=== PATIENT | female | born 1980 | race Caucasian/White ===

== ENCOUNTER 2020-08-26 08:37 | Outpatient (CLI) | payer OTHER, SELFPAY ==
--- NOTE | ~2020-08-26 | US_ITS ---
EXAMINATION: US pelvic complete w TV EXAM DATE: 08/26/2020 10:17 INDICATION: Abnormal uterine bleeding. IUD, pelvic pain. TECHNIQUE: Pelvic transabdominal and transvaginal sonogram was performed. There are multiple graysca le and Doppler images available for interpretation. Comparison is made to prior examination from 07/31. FINDINGS: Uterus measures 7.1 x 3.7 x 3.3 cm, anteverted with IUD centrally located inside the endom etrial cavity. Endometrial stripe measures 7 mm, within normal limits. There is no free pelvic flui d. Right adnexa: The ovary measures 1.8 x 1.5 x 1.5 cm and is morphologically normal. Ovarian vascular f low confirmed. Left adnexa: The ovary measures 1.5 x 1.9 x 1.6 cm and is morphologically normal. Ovarian vascular fl ow confirmed. IMPRESSION: 1. IUD in expected position. Reviewed, dictated and finalized at location B. SEALING FUEL TANK REPAIRER
--- NOTE | ~2020-08-26 | MMUS_ITS ---
EXAMINATION: MM diagnostic nakul BI w cresencio, US breast RT limited HISTORY: Bilateral milky nipple discharge TECHNIQUE: Craniocaudal, mediolateral, and mediolateral oblique 3-D tomosynthesis images of the breas ts were performed and synthetic 2-D images were generated. CAD analysis was submitted and interpreted . High resolution limited right breast ultrasound was performed. COMPARISON: None, baseline BREAST PARENCHYMAL COMPOSITION: The breasts are heterogeneously dense, which may obscure small masses . FINDINGS: MAMMOGRAPHIC FINDINGS: There is no evidence of suspicious mass, calcification, or architectural distortion in either breast to suggest malignancy. No mammographic correlate is identified for the patient's bilateral nipple di scharge. An asymmetry is present in the middle third of the outer breast 9 cm from the nipple on the craniocaudal view. ULTRASOUND: There is no evidence of focal abnormal solid or cystic lesion in the vicinity of the mammographic fin ding in question. IMPRESSION: 1. No specific mammographic correlate is identified for the patient's nipple discharge. Further evalu ation at this time should be based on clinical assessment. Continued follow-up physical examination i s recommended. 2. Recommend 6 month follow-up right diagnostic mammogram and possible ultrasound for the asymmetry i n the outer right breast on the craniocaudal view. BI-RADS category 3, probably benign findings. Reviewed, dictated and finalized at location A. OMER COMPLAINT SERVICE SUPERVISOR IMPRESSION: 1. No specific mammographic correlate is identified for the patient's nipple di scharge. Further evaluation at this time should be based on clinical assessment . Continued follow-up physical examination is recommended. 2. Recommend 6 month follow-up right diagnostic mammogram and possible ultrasou nd for the asymmetry in the outer right breast on the craniocaudal view. BI-RADS category 3, probably benign findings.
== END 2020-08-26 08:38 | disposition home or self-care (01) ==
PROVIDERS: PCP Family Medicine; Visit Provider Nurse Practitioner
DX: N64.52 Nipple discharge (principal); R10.2 Pelvic and perineal pain; N93.8 Other specified abnormal uterine and vaginal bleeding; R92.8 Other abnormal and inconclusive findings on diagnostic imaging of breast; Z97.5 Presence of (intrauterine) contraceptive device
CPT/HCPCS: 76642; 76830; 76856; 77062; 77066; G0279

== ENCOUNTER 2021-04-25 11:27 | Outpatient (CLI) | payer OTHER, SELFPAY ==
--- NOTE | ~2021-04-25 | MMUS_ITS ---
EXAMINATION: MM diagnostic nakul RT w cresencio, US breast RT limited HISTORY: Six-month follow-up for outer right breast asymmetry on craniocaudal view of numerous 2020 TECHNIQUE: Full field ML, MLO and craniocaudal and spot craniocaudal 3-D tomosynthesis images of the right breast were performed and synthetic 2-D images were generated. Rolled medial and lateral cranio caudal views. CAD analysis was submitted and interpreted. High resolution right upper outer quadrant breast ultrasound was performed. COMPARISON: August 26, 2020 bilateral diagnostic mammogram BREAST PARENCHYMAL COMPOSITION: There are scattered areas of fibroglandular density. FINDINGS: MAMMOGRAPHIC FINDINGS: No reproducible mass, architectural distortion, malignant calcification, skin thickening or retractio n or significant new or developing density is detected. ULTRASOUND: No suspicious mass or shadowing, cyst or other significant finding is noted in the upper outer quadra nt of the right breast. IMPRESSION: 1. No mammographic evidence for malignancy 2. Routine mammographic screening is recommended. BI-RADS Category 1: Negative Reviewed, dictated and finalized at location A. IMPRESSION: 1. No mammographic evidence for malignancy 2. Routine mammographic screening is recommended. BI-RADS Category 1: Negative
== END 2021-04-25 11:28 | disposition home or self-care (01) ==
LOC: ANHIMG 11:29
PROVIDERS: PCP Family Medicine; Visit Provider Obstetrics & Gynecology Gynecology
DX: R92.8 Other abnormal and inconclusive findings on diagnostic imaging of breast (principal)
CPT/HCPCS: 76642; 77061; 77065; G0279

== ENCOUNTER 2022-05-11 15:10 | Outpatient (CLI) | payer OTHER, SELFPAY ==
--- NOTE | ~2022-05-11 | MM_ITS ---
EXAMINATION: MM screening nakul BI w cresencio HISTORY: Screening mammogram TECHNIQUE: Craniocaudal and mediolateral oblique 3-D tomosynthesis images were obtained and synthetic 2-D images were generated. CAD analysis was submitted and interpreted. COMPARISON: 04/25/2021 diagnostic right mammogram and limited right breast ultrasound 08/26/2020 bilateral diagnostic mammogram and limited right breast BREAST PARENCHYMAL COMPOSITION: There are scattered areas of fibroglandular density. FINDINGS: Approximately 4 x 5 x 5 x 7 mm low-density circumscribed opacity is noted in the posterior upper outer right breast (craniocaudal Tomosynthesis /; MLO Tomosynthesis image ). Similar m ass is noted retrospectively on 04/25/2021 mammogram; this is likely a benign intramammary lymph node .. There is no evidence of suspicious mass, calcification, or architectural distortion to suggest mal ignancy in either breast. There has been no suspicious interval change. IMPRESSION: 1. Benign findings; no mammographic evidence of malignancy 2. Recommend routine screening mammography in one year. BI-RADS Category 2: Benign finding(s). Reviewed, dictated and finalized at location A. SOFTWARE ENGINEER
== END 2022-05-11 15:11 | disposition home or self-care (01) ==
LOC: ANHIMG 15:11
PROVIDERS: PCP Family Medicine; Visit Provider Obstetrics & Gynecology Gynecology
DX: Z12.31 Encounter for screening mammogram for malignant neoplasm of breast (principal)
CPT/HCPCS: 77063; 77067

== ENCOUNTER 2025-04-16 14:58 | Outpatient (CLI) | payer OTHER, SELFPAY ==
--- NOTE | ~2025-04-16 | MM_ITS ---
EXAMINATION: MM screening [facility] BI w cresencio HISTORY: Screening TECHNIQUE: Craniocaudal and mediolateral oblique 3-D tomosynthesis images were obtained and synthetic 2-D images were generated. CAD analysis was submitted and interpreted. COMPARISON: 08/26/2020 BREAST PARENCHYMAL COMPOSITION: There are scattered areas of fibroglandular density. FINDINGS: There is no evidence of suspicious mass, calcification, or architectural distortion to suggest malignancy. Focal asymmetry in the upper- outer quadrant of the right breast, posterior depth. IMPRESSION: 1. Focal asymmetry in the upper-outer quadrant of the right breast, posterior depth. The study is incomplete. A diagnostic mammogram and a diagnostic ultrasound are recommended. BI-RADS 0: Incomplete-Need additional imaging evaluation. Reviewed, dictated and finalized at location Q. IMPRESSION: 1. Focal asymmetry in the upper-outer quadrant of the right breast, posterior d epth. The study is incomplete. A diagnostic mammogram and a diagnostic ultrasou nd are recommended. BI-RADS 0: Incomplete-Need additional imaging evaluation.
--- OUTSIDE RECORDS SUMMARY | 2025-04-16 15:01 | XMS_ITS | Clinical Summary ---
Author Organization [facility] Address [facility]ly [facility] [place] [address] Care Team Providers Care Asphalt Mixer Name Role Phone Unavailable Primary Care Provider Unavailabl e Social History Tobacco Use Types Packs/Day Years Used Date Smoking Tobacco: Never Assessed Comments Unknown Sex and Gender Information Value Date Recorded Sex Assigned at Not on file Legal Sex Female 8:33 PM CDT Gender Identity Not on file Sexual Orientation Not on file Plan of Treatment Health Maintenance Due Date Last Done Comments Cervical Cancer Screening Pa p Smear (Age 30 to 64) Every 3 Years 1981 Annual Physical 1984 Hepatitis C 11/29/1999 DTaP, Tdap and Td Vaccines ( 1 - Tdap) 2000 Hepatitis B Vaccines (1 of 3 - 19+ 3-dose series) 2000 HPV Vaccines (1 - 3-dose SCD M series) 2008 Cervical Cancer Screening Pa p with HPV Testing (Age 30 to 64) Every 5 Years 11/29/2011 Cervical Cancer Screening with HPV 11/29/2011 Mammogram Screening 2021 COVID-19 Vaccine (2023-2 5 season) 2025 Influenza Adult (#1) 2025 Meningococcal B Vaccine Aged Out No l onger eligible based on patient's age to complete this topic Meningococcal Vaccine Aged Out No chris bernice eligible based on patient's age to complete this topic Pneumococcal Vaccine: Pediat rics (0 to 5 Years) and At-Risk Patients (6 to 49 Years) Aged Out No longer eligible b ased on patient's age to complete this topic RSV Immunizations Under 20 Months Aged Out No longer eligible based on patient's age to complete this topic
--- OUTSIDE RECORDS SUMMARY | 2025-04-16 15:02 | XMS_ITS | Patient Health Record ---
Author Organization [facility] Address [address] [place] [address] Care Team Providers Care Tare Worker Name Role Phone Sophia Vaughn Unavailable [phone] Reason For Referral No Information Medications Medication SIG (Take, Route, Frequency, Duration) Notes Start Date End Date Status Topiramate 50 MG Tablet Oral 09/28/2022 Active DULoxetine HCl 30 MG Capsule Delayed Release Particles Oral 09/28/2022 Active metroNIDAZOLE 500 MG Tablet Oral 09/28/2022 Active Ergocalciferol 1.25 MG (05234 UT) Capsule Oral 09/28/2022 Active Escitalopram Oxalate 20 MG Tablet Oral 09/28/2022 Active busPIRone HCl 15 MG Tablet Oral 09/28/2022 Active NUVARING 0.12 MG-0.015 MG/24 HR VAGINAL *Reorder from EXTRABANCA for eRx and Interaction Alerts* 09/28/2022 Active Doxycycline Monohydrate 100 MG Capsule Oral 09/28/2022 Active DULoxetine HCl 60 MG Capsule Delayed Release Particles Oral 09/28/2022 Active Immunizations Vaccine Route Administration Date Status Comme nts Pfizer Biontech Covid-19 Vac cine 2nd dose Unknown 08/20/2022 Administered Pfizer Biontech Covid-19 Vac cine 2nd dose Unknown 09/17/2022 Administered Tdap Unknown 07/01/2012 Administered Social History Social History Additional Details Category Social Info Options Details Migrated Social History Migrated Social History Alcohol Intake: Occasional 06/11/2020,Tobacco Years: Current some days smoker 07/10/2021,Smoking Status: 2 09/28/2022 Plan Of Treatment No Information Insurance Providers Payer Name Payer Address Payer Phone Subscriber Number Group Number Insured Name Patient Relationship to Insured Coverage Start Date Coverage End Date [facility] [address] [place] [phone] [id number] ALEX HANKINS Spouse - patient is the spouse of the insured
--- OUTSIDE RECORDS SUMMARY | 2025-04-16 15:02 | XMS_ITS | Clinical Summary ---
Author Organization [facility] Address [address] [place] [address] Care Team Providers Care Uniform Force Captain Name Role Phone Manan Duran MD Primary Care Provider + Source Comments [facility] Affiliates and Associated Physician Practices is amultiple site organization consisting of ambulatory clinics and hospital sitesin [place], [place], [place] and [place]. This disclosure is being madepursuant to the Care Everywhere program and may not contain all information available regarding this patient. Last updated 18.[facility] Family History Medical History Relation Name Comments Hypertension Father Relation Name Status Comments Father Social History Tobacco Use Types Packs/Day Years Used Date Smoking Tobacco: Never Alcohol Use Standard Drinks/Week Comments Yes 0 (1 standard drink = 0.6 oz pur e alcohol) Socially Comments Unknown Sex and Gender Information Value Date Recorded Sex Assigned at Not on file Legal Sex Female 7:49 AM FACILITY ASSISTANT Gender Identity Not on file Sexual Orientation Not on file Plan of Treatment Health Maintenance Due Date Last Done Comments LIPID TESTING 1981 MAMMOGRAM 1981 HIV SCREENING 1996 HEPATITIS C SCREENING 11/24/1999 DTAP/TDAP/TD VACCINES (1 - Tdap) 2000 HEPATITIS B VACCINE (1 of 3 - 19+ 3-dose series) 2000 HPV VACCINE (1 - 3-dose SCDM series) 2008 DEPRESSION SCREENING 07/01/2024 COVID-19 VACCINE (1 - 2023-2 5 season) 2025 INFLUENZA VACCINE (#1) 2025 ZOSTER VACCINE (1 of 2) 11/29/2031 HIB VACCINE Aged Out No longer eligi ble based on patient's age to complete this topic MENINGOCOCCAL (Group B) VACC INE SHARED DECISION-MAKING Aged Out No longer eligibl e based on patient's age to complete this topic MENINGOCOCCAL GROUPS A/C/Y/W VACCINE Aged Out No longer eligible b ased on patient's age to complete this topic PNEUMOCOCCAL VACCINE Aged Out No long er eligible based on patient's age to complete this topic Care Teams Uniform Force Captain Relationship Specialty Start Date End Date Manan Durna MD [address] [place], [place] [address] PCP - General 02/07/09
--- OUTSIDE RECORDS SUMMARY | 2025-04-16 15:02 | XMS_ITS | Clinical Summary ---
Author Organization [facility] Address [address] [place] [address] Phone Care Team Providers Care Corrugator Operator Name Role Phone Richard Hope MD Primary Care Provider [phone] Allergies No known active allergies Social History Tobacco Use Types Packs/Day Years Used Date Smoking Tobacco: Never Assessed Alcohol Use Standard Drinks/Week Comments No 0 (1 standard drink = 0.6 oz pur e alcohol) Comments Yes Sex and Gender Information Value Date Recorded Sex Assigned at Not on file Legal Sex Female 4:06 PM LIFE CYCLE ASSESSMENT ANALYST Gender Identity Not on file Sexual Orientation Not on file Occupation Industry Job Start Date Job End Date Not on file Not on file Not on file Not on file Plan of Treatment Health Maintenance Due Date Last Done Comments DTAP/TDAP/TD VACCINES (1 - Tdap) 2000 HEPATITIS B VACCINES (1 of 3 - 19+ 3-dose series) 10/31 HPV/Cotest (21-29) 2002 HPV VACCINES (1 - 3-dose SCDM series) 2008 CERVICAL CANCER SCREENING 11/29/2011 HPV/Cotest (30-65) 11/29/2011 PAP SMEAR 11/29/2011 BREAST CANCER SCREENING 2021 INFLUENZA VACCINE (#1) 2025 RSV VACCINE (60+ or ) (1 - 1-dose 75+ series) 2056 Insurance [facility] [employer] PPO [id number] Member Subscriber Plan / Payer (Ef fective 2020-Present) Name:Courtney Parada Relation to Subscriber:Self Name:Courtney Parada Payer ID:[id number] (NAIC) Type:PPO Address: [facility] [id number] [place] [id number] Care Teams Corrugator Operator Relationship Specialty Start Date End Date Richard Hope MD [address] [place] [address] PCP - General Family Practice 08/11/12
== END 2025-04-16 14:59 | disposition home or self-care (01) ==
LOC: ANHFOHIMG 14:59
PROVIDERS: PCP Family Medicine; Visit Provider Nurse Practitioner
DX: Z12.31 Encounter for screening mammogram for malignant neoplasm of breast (principal); R92.8 Other abnormal and inconclusive findings on diagnostic imaging of breast
CPT/HCPCS: 77063; 77067